=== PATIENT | male | born 1975 | race Caucasian/White ===

== ENCOUNTER 2016-12-18 16:11 | Emergency (ER) | payer OTHER ==
[2016-12-18 16:49] LABS: URINE BILIRUBIN NEGATIVE (NEGATIVE); URINE BLOOD NEGATIVE (NEGATIVE); URINE GLUCOSE (UA) NORMAL (NORMAL); URINE KETONE NEGATIVE (NEGATIVE); URINE LEUKOCYTE ESTERASE TRACE (NEGATIVE); URINE NITRATE NEGATIVE (NEGATIVE); URINE PROTEIN NEGATIVE (NEGATIVE)
[2016-12-18 17:02] LABS: URINE WBC RARE /[HPF] (0-3)
[2016-12-18 17:03] LABS: URINE BACTERIA TRACE (NONE SEEN); URINE MUCUS TRACE
== END 2016-12-18 17:34 | disposition home or self-care (01) ==
LOC: ER 16:11
PROVIDERS: Internal Medicine
DX: M54.5 Low back pain (principal); G89.29 Other chronic pain; I10 Essential (primary) hypertension; F17.210 Nicotine dependence, cigarettes, uncomplicated; Z79.899 Other long term (current) drug therapy; Z79.891 Long term (current) use of opiate analgesic
CPT/HCPCS: 81001; 96372; 99283-25; 99284